=== PATIENT | female | born 1995 | race Two or more races ===

== ENCOUNTER 2023-05-22 08:43 | Outpatient (CLI) | payer OTHER | END 2023-05-22 08:57 | disposition home or self-care (01) | LOC: RX STUDY 08:43 | DX: N97.9 Female infertility, unspecified (principal) ==

== ENCOUNTER 2024-07-21 06:30 | Emergency (ER) | payer OTHER ==
[~2024-07-21] VITALS: Ht 154.9 cm; Wt 72.6 kg
== END 2024-07-21 12:10 | disposition home or self-care (01) ==
LOC: ER 06:32
DX: R10.2 Pelvic and perineal pain (principal)